=== PATIENT | female | born 1935 | race Caucasian/White ===

== ENCOUNTER 2025-03-04 14:18 | Outpatient (CLI) | payer MEDICARE | END 2025-03-04 14:19 | disposition home or self-care (01) | LOC: BICMAMMO 14:18 | PROVIDERS: ATTEND Family Medicine | DX: M85.89 Other specified disorders of bone density and structure, multiple sites (principal); M81.0 Age-related osteoporosis without current pathological fracture | CPT/HCPCS: 77080 ==